=== PATIENT | female | born 1990 | race African-American/Black ===

== ENCOUNTER 2017-05-14 13:23 | Emergency (ER) | payer BC, OTHER ==
--- NOTE | 2017-05-14 13:52 | ER Document Report ---
ED GI/ - General Chief Complaint: Abdominal Pain Stated Complaint: ABDOMINAL PAIN, VAGINAL BLEEDING Time Seen by Provider: 05/14/17 13:50 Notes: Patient is a 26-year-old female, , 9 weeks by LMP, presents with a few hours of light vaginal spotting. She has had cramping for the past 5 weeks. Her first OB appointment is 4 days, so she has not had an ultrasound to confirm an intrauterine . She is no longer having any vaginal spotting. Her blood type is O+. Denies lightheadedness, abdominal pain, dysuria, hematuria, fevers, headache, nausea or vomiting. TRAVEL OUTSIDE OF THE [place] IN LAST 30 DAYS: No - Related Data Allergies/Adverse Reactions: adhesive [Adhesive] Allergy (Verified 05/14/17 14:34) No Known Drug Allergies Allergy (Verified 05/14/17 14:34) Past Medical History - General Information source: Patient - Social History Smoking Status: Never Smoker Family History: Reviewed & Not Pertinent Patient has suicidal ideation: No Patient has homicidal ideation: No Pulmonary Medical History: Reports: Hx Pneumonia Renal/ Medical History: Denies: Hx Peritoneal Dialysis - Immunizations Hx Diphtheria, Pertussis, Tetanus Vaccination: Yes - < 5 years Hx Pneumococcal Vaccination: 08/18/11 Review of Systems - Review of Systems Notes: REVIEW OF SYSTEMS: CONSTITUTIONAL: -fevers, -chills EENT: -eye pain, -difficulty swallowing, -nasal congestion CARDIOVASCULAR:-chest pain, -syncope. RESPIRATORY: -cough, -SOB GASTROINTESTINAL: -abdominal pain, - nausea, -vomiting, -diarrhea GENITOURINARY: -dysuria, -hematuria, +vaginal spotting MUSCULOSKELETAL: -back pain, -neck pain SKIN: -rash or skin lesions. HEMATOLOGIC: -easy bruising or bleeding. LYMPHATIC: -swollen, enlarged glands. NEUROLOGICAL: -altered mental status or loss of consciousness, -headache, - neurologic symptoms PSYCHIATRIC: -anxiety, -depression. ALL OTHER SYSTEMS REVIEWED AND NEGATIVE. Physical Exam - Vital signs Vitals: Temp Pulse Resp BP Pulse Ox 98.1 F 87 18 113/59 L 100 05/14/17 13:29 05/14/17 13:29 05/14/17 13:29 05/14/17 13:29 05/14/17 13:29 - Notes Notes: PHYSICAL EXAMINATION: GENERAL: Well-appearing, well-nourished and in no acute distress. HEAD: Atraumatic, normocephalic. EYES: Pupils equal round and reactive to light, extraocular movements intact, sclera anicteric, conjunctiva are normal. ENT: nares patent, oropharynx clear without exudates. Moist mucous membranes. NECK: Normal range of motion, supple without lymphadenopathy LUNGS: Breath sounds clear to auscultation bilaterally and equal. No wheezes rales or rhonchi. HEART: Regular rate and rhythm without murmurs ABDOMEN: Soft, nontender, normoactive bowel sounds. No guarding, no rebound. No masses appreciated. EXTREMITIES: Normal range of motion, no pitting or edema. No cyanosis. NEUROLOGICAL: Cranial nerves grossly intact. Normal speech, normal gait. Normal sensory and motor exams. PSYCH: Normal mood, normal affect. SKIN: Warm, Dry, normal turgor, no rashes or lesions noted. Course - Re-evaluation Re-evalutation: Patient appears well. Her ultrasound shows a single intrauterine with estimated gestational age of 8 weeks 6 days. Her cervix is closed and she is no longer bleeding. Her blood type is O+ from prior blood tests. She has an appointment with her OB in 3 days. Will discharge home with return precautions. - Vital Signs Vital signs: Temp Pulse Resp BP Pulse Ox 98.1 F 87 18 113/59 L 100 05/14/17 13:29 05/14/17 13:29 05/14/17 13:29 05/14/17 13:29 05/14/17 13:29 - Laboratory Laboratory results interpreted by me: 05/14/17 05/14/17 13:55 13:55 Serum HCG, Qual POSITIVE H Urine Blood SMALL H Ur Leukocyte Esterase TRACE H Discharge - Discharge Clinical Impression: Vaginal bleeding in Qualifiers: Trimester: first trimester Qualified Code(s): O46.91 - Antepartum hemorrhage, unspecified, first trimester Condition: Stable Disposition: HOME, SELF-CARE Additional Instructions: : You are . care is best started as early in as possible. If you're unsure about continuing this , you should discuss this with your physician or with cocktail server at [facility]. You should take only medications approved by your physician. Acetaminophen can safely be taken for minor pains. As a rule, medication for chronic conditions such as asthma or seizures can safely be continued. You should discuss with the physician every medicine you take. Any regular exercise program can be continued. Talk to your physician, however, before engaging in competitive or demanding sports. Alcohol, smoking, and "street drugs" are dangerous to your baby. Cocaine is especially dangerous. Don't use any illicit drugs! BLEEDING DURING EARLY : You have been evaluated for passing blood while . While we take this symptom very seriously, most women with your degree of bleeding will go on to have a perfectly normal baby. At this time, there is no indication that a miscarriage will occur. (A miscarriage occurs when the fetus is abnormal. There is no medicine or treatment to prevent it.) A more serious cause of bleeding is tubal (or ectopic) . An ultrasound usually can show whether the is in the uterus or in the tube. Sometimes in early , no fetus is seen. In this case, careful follow-up, including repeat blood tests and repeat ultrasound, is necessary. Do not douche or have sex for at least a week, or until OK'd by the doctor. Don't use tampons. Call the doctor or return for re-examination if there is an increase in bleeding or cramping, extreme weakness, fainting, new abdominal pain, fever, or passage of tissue. FOLLOW-UP CARE: If you have been referred to a physician for follow-up care, call the physician s office for an appointment as you were instructed or within the next two days. If you experience worsening or a significant change in your symptoms (very heavy bleeding with large clots of blood, passage of tissue, more severe abdominal / pelvic pain or cramping, feeling faint or severe weakness, fever, etc.), notify the physician immediately or return to the Emergency Department at any time for re-evaluation. OBSTETRIC-GYNECOLOGIC (OB-LICENSING OFFICER) PHYSICIANS IN [place]: [facility] [address] [place], [place] [phone] [facility] [address] [place] [address] [phone] For active duty and dependents diagnosed with a threatened or miscarriage, you should follow up in the following manner: Standard patients who have a local civilian provider should follow up with that provider. Patients of the [facility] should call your Team Nurse at 8: 00 am the following morning for further instructions. If you are neither a Standard patient nor a patient of the [facility], you should follow up at the [facility] ([facility]) . Patients already enrolled in the [facility] OB Clinic, Prime patients not assigned to the Family Practice Clinic, and Active Duty patients not assigned to Family Practice Clinic should report to the [facility] Lab at 8:00 am the next morning that the [facility] OB Clinic is open and then you will be seen in the OB Clinic at 11:00 am.
[2017-05-14 14:27] LABS: APPEARANCE,URINE CLEAR; BILIRUBIN,URINE NEGATIVE (NEGATIVE); GLUCOSE, URINE NEGATIVE (NEGATIVE); KETONES,URINE NEGATIVE (NEGATIVE); LEUKOCYTE ESTERASE,URINE TRACE (NEGATIVE); NITRITE,URINE NEGATIVE (NEGATIVE); PROTEIN,URINE NEGATIVE (NEGATIVE); URINE SPECIFIC GRAVITY 1.006; UROBILINOGEN,URINE NEGATIVE mg/dL (<2.0)
--- NOTE | 2017-05-14 14:52 | RADIOLOGY REPORT (SQ) ---
EXAM DESCRIPTION: U/S [id number] TRNABD 1GES W/ODOP COMPLETED DATE/TIME: 05/14/2017 2:37 pm REASON FOR STUDY: 9 weeks , vaginal bleeding/cramping COMPARISON: None. TECHNIQUE: Transabdominal static and realtime grayscale images acquired of the pelvis. Additional se lected spectral and color Doppler images recorded. All images stored on PACs. CG: Not available. LIMITATIONS: None. FINDINGS: FETUS: Living intrauterine . EGA: 8 weeks 6 days JOSE DE JESUS: 12/18/2017 FHR: 169 beats per minute. SUBCHORIONIC BLEED: No SIZE OF BLEED: Not applicable. UTERUS: No masses. No anomalies. 10.5 x 9.5 x 7.5 cm. CERVICAL LENGTH: 3.7 cm. Closed. RIGHT ADNEXA: Not seen. No adnexal free fluid. No adnexal masses. LEFT ADNEXA: Normal ovary with normal vascular flow. 22 x 17 x 20 mm. No adnexal free fluid. No adnexal masses. FREE FLUID: None. OTHER: No other significant finding. IMPRESSION: There is a live intrauterine gestation of 8 weeks 6 days with an estimated date of deliv mary of 12/18/2017. Trimester of : First - 0 to 13 weeks. TECHNICAL DOCUMENTATION: JOB ID: [id number] [employer]- All Rights Reserved
[2017-05-14 15:13] VITALS: BP 116/62
== END 2017-05-14 15:15 | disposition home or self-care (01) ==
LOC: ER 13:23
DX: O46.91 Antepartum hemorrhage, unspecified, first trimester (principal); Z3A.08 8 weeks gestation of pregnancy
CPT/HCPCS: 36415; 76801; 81001; 84702; 84703; 99284

== ENCOUNTER → 2017-06-04 | Outpatient (CLI) | payer SELFPAY ==
--- NOTE | 2017-06-04 16:37 | RADIOLOGY REPORT (SQ) ---
EXAM DESCRIPTION: U/S [id number] TRNABD 1GES W/ODOP COMPLETED DATE/TIME: 06/04/2017 3:07 pm REASON FOR STUDY: ENCOUNTER FOR SUPERVISION OF OTHER NORMAL , FIRST TRIMESTER (Z34.8 Z34.81 ENCOUNTER FOR SUPRVSN OF NORMAL , FIRST TRIM COMPARISON: OB ultrasound 05/14/2017 TECHNIQUE: Transabdominal static and realtime grayscale images acquired of the pelvis. Additional se lected spectral and color Doppler images recorded. All images stored on PACs. bHCG: Not available. Last menses 03/09/2017 LIMITATIONS: None. FINDINGS: FETUS: Living intrauterine . EGA: 12 weeks 3 days JOSE DE JESUS: 12/14/2017 FHR: 175 beats per minute. SUBCHORIONIC BLEED: Yes, 1 cm in size along the lower uterine segment. UTERUS: No masses. No anomalies. Uterus is 13.1 x 8.5 x 7.8 cm in size. CERVICAL LENGTH: 3.6 cm in length Closed. RIGHT ADNEXA: Not visualized due to adnexal bowel gas LEFT ADNEXA: Left ovary 2.2 x 1.7 x 2.2 cm in size, with an 8 mm cyst, likely the corpus luteum. No adnexal free fluid. No adnexal masses. FREE FLUID: None. OTHER: No other significant finding. IMPRESSION: LIVING INTRAUTERINE . EGA 12 weeks 3 days Trimester of : First - 0 to 13 weeks. TECHNICAL DOCUMENTATION: JOB ID: [id number] [employer]- All Rights Reserved
== END ==
LOC: RAD 14:07
PROVIDERS: ATTEND Nurse Practitioner Women's Health
DX: Z34.81 Encounter for supervision of other normal pregnancy, first trimester (principal)
CPT/HCPCS: 76801

== ENCOUNTER → 2017-07-17 | Outpatient (CLI) | payer SELFPAY ==
--- NOTE | 2017-07-17 16:16 | RADIOLOGY REPORT (SQ) ---
EXAM DESCRIPTION: U/S OB 14+ TRNABD 1GES W/O DOP COMPLETED DATE/TIME: 07/17/2017 3:58 pm REASON FOR STUDY: ENCOUNTER FOR SUPERVISION OF OTHER NORMAL , SECOND TRIMESTER Z34.82 ENCO UNTER FOR SUPRVSN OF NORMAL , SECOND TRI COMPARISON: None. TECHNIQUE: Static and Dynamic grayscale imaging performed of gravid uterus using transabdominal appr oach. Additional selected color Doppler and spectral images recorded. All stored on PACS. LIMITATIONS: None. FINDINGS: EGA: 18 weeks 3 days weeks JOSE DE JESUS: 12/15/2017 EFW: 231+/- 34 grams PERCENTILE: Not applicable. Fetus less than or equal to 20 weeks gestation. LOYDA: 4.8 cm PLACENTA: Anterior and fundal. GRADE: I PRESENTATION: Cephalic. ANATOMY: HEART RATE: 148 beats per minute. FOUR CHAMBER HEART: Visualized. THREE VESSEL CORD: Yes. CORD INSERTION: Visualized. KIDNEYS AND BLADDER: Visualized. Appear normal. STOMACH: Visualized. Appears normal. SPINE: Normal as visualized. BRAIN AND LATERAL VENTRICLES: Visualized. Appear normal. OTHER: No other significant finding. MATERNAL ADNEXA: Maternal ovaries not visualized. CERVICAL LENGTH: 4.7 cm Closed. OTHER: No other significant finding. IMPRESSION: Live intrauterine gestation of 18 weeks 3 days with estimated date of delivery of 018. No visualized anomalies. Trimester of : Second trimester - 13 weeks 1 day to 27 weeks 6 days. TECHNICAL DOCUMENTATION: JOB ID: [id number] [employer]- All Rights Reserved
== END ==
LOC: RAD 14:05
PROVIDERS: ATTEND Nurse Practitioner Women's Health
DX: Z34.82 Encounter for supervision of other normal pregnancy, second trimester (principal)
CPT/HCPCS: 76805

== ENCOUNTER 2017-08-20 08:05 | Emergency (ER) | payer BC ==
--- NOTE | 2017-08-20 08:53 | ER Document Report ---
HPI - HPI Pain Level: 4 Notes: Patient is a 23wk 27yo female who presents to the ED c/o dry nonproductive cough, nasal isiah/discharge, occ sore throat, muscle spasms x1 week. Pt has been using tylenol with minimal relief. 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 She is still eating and drinking without any difficulties. She is still urinating normally and having normal bowel movements. She has not noticed any pelvic cramping, vaginal discharge/bleeding. Denies any headache, fever, neck pain, chest pain, palpitations, syncope, shortness of breath, wheeze, dyspnea, abdominal pain, nausea/vomiting/diarrhea, urinary retention, dysuria, hematuria, or rash. - ROS Notes: REVIEW OF SYSTEMS: CONSTITUTIONAL : Denies fever, chills, or sweats. Denies recent illness. EENT: see hpi CARDIOVASCULAR: Denies chest pain. Denies palpitations or racing or irregular heart beat. Denies ankle edema. RESPIRATORY: see hpi GASTROINTESTINAL: Denies abdominal pain or distention. Denies nausea, vomiting , or diarrhea. Denies blood in vomitus, stools, or per rectum. Denies black, tarry stools. Denies constipation. GENITOURINARY: Denies difficulty urinating, painful urination, burning, frequency, blood in urine, or discharge. MUSCULOSKELETAL: Denies back or neck pain or stiffness. Denies joint pain or swelling. SKIN: Denies rash, lesions or sores. NEUROLOGICAL: Denies confusion or altered mental status. Denies passing out or loss of consciousness. Denies dizziness or lightheadedness. Denies headache. Denies weakness or paralysis or loss of use of either side. Denies problems with gait or speech. Denies sensory loss, numbness, or tingling. ALL OTHER SYSTEMS REVIEWED AND NEGATIVE. Dictation was performed using [employer] voice recognition software - CARDIOVASCULAR Cardiovascular: DENIES: Chest pain - REPRODUCTIVE LMP: LMP 03/09/17 23wk pg Reproductive: DENIES: : - DERM Skin Color: Normal Past Medical History - Social History Smoking Status: Never Smoker Frequency of alcohol use: None Drug Abuse: None Family History: Reviewed & Not Pertinent Patient has suicidal ideation: No Pulmonary Medical History: Reports: Hx Pneumonia Renal/ Medical History: Denies: Hx Peritoneal Dialysis Surgical Hx: Negative - Immunizations Hx Diphtheria, Pertussis, Tetanus Vaccination: Yes - < 5 years Hx Pneumococcal Vaccination: 08/18/11 Vertical Provider Document - CONSTITUTIONAL Agree With Documented VS: Yes Notes: PHYSICAL EXAMINATION: GENERAL: Well-appearing, well-nourished and in no acute distress. A&Ox4 HEAD: Atraumatic, normocephalic. EYES: Pupils equal round and reactive to light, extraocular movements intact, sclera anicteric, conjunctiva are normal. ENT: EAC clear b/l. TM's intact b/l without erythema, fluid, or perforation. Nares patent and without discharge. oropharynx clear without exudates. No tonsilar hypertrophy or erythema. Moist mucous membranes. No sinus tenderness. Uvula midline. No palatine shift. No tongue protrusion. NECK: Normal range of motion, supple without lymphadenopathy. No rigidity/ meningismus. LUNGS: Breath sounds clear to auscultation bilaterally and equal. No wheezes rales or rhonchi. HEART: Regular rate and rhythm without murmurs, rubs, gallops. ABDOMEN: Soft, nontender, nondistended abdomen. No guarding, no rebound. No masses appreciated. Normal bowel sounds present. No CVA tenderness bilaterally. Extremities: No cyanosis, clubbing, or edema b/l. Peripheral pulses 2+. Capillary refill less than 3 seconds. NEUROLOGICAL: Cranial nerves grossly intact. Normal speech, normal gait. Normal sensory, motor exams PSYCH: Normal mood, normal affect. SKIN: Warm, Dry, normal turgor, no rashes or lesions noted. - INFECTION CONTROL TRAVEL OUTSIDE OF THE [place] IN LAST 30 DAYS: No - RESPIRATORY O2 Sat by Pulse Oximetry: 100 Course - Re-evaluation Re-evalutation: 08/20/17 08:50 Patient is an afebrile, well-hydrated, 27-year-old 23wk female who presents to the ED with acute bronchitis/URI, suspect viral at this time. Vitals are stable. PE is otherwise unremarkable. Centor criteria not met for strep. No chest x-ray warranted at this time. I will send the patient home with a pack a prescription for amoxicillin that she may begin taking in 2-3 days with ongoing/worsening symptoms. Low suspicion for any meningitis, sepsis , peritonsillar/pharyngeal abscess, respiratory compromise, Clyde's, temporal arteritis, ACS, PE, penumothorax, dissection, pericarditis, or other emergent systemic condition at this time. Patient is aware this condition can change from initial presentation and he needs to monitor symptoms closely. Conservative measures otherwise for symptoms. Recheck with your PCM this week. Return to the ED with any worsening/concerning symptoms otherwise as reviewed in discharge. Patient is in agreement. - Vital Signs Vital signs: Temp Pulse Resp BP Pulse Ox 98.4 F 90 18 110/60 100 08/20/17 08:15 08/20/17 08:15 08/20/17 08:40 08/20/17 08:15 08/20/17 08:15 Discharge - Discharge Clinical Impression: Acute URI Acute bronchitis Qualifiers: Bronchitis organism: unspecified organism Qualified Code(s): J20.9 - Acute bronchitis, unspecified Condition: Stable Disposition: HOME, SELF-CARE Instructions: Upper Respiratory Illness ([facility]), Bronchitis ([facility]), Family Physicians / Practices Additional Instructions: Maintain adequate fluid intake Take meds as directed tylenol as needed over the counter cold medication as needed for symptoms Humidified air may help F/u: with your PCM in 3-5 days for a recheck Return to the ED with any fever, worsening pain, chest pain, palpitations, syncope, worsening CARDENAS, neck pain/stiffness, shortness of breath, wheezing, drooling, trouble swallowing/breathing, abdominal pain, n/v/d, rash, or worsening/concerning symptoms otherwise. Prescriptions: Amoxicillin Trihydrate [Amoxil 875 mg Tablet] 1 tab PO BID #20 tablet Referrals: [facility] [Provider Group] - Follow up as needed [facility] [NO LOCAL MD] - Follow up as needed [facility] [Provider Group] - Follow up as needed
[2017-08-20 09:16] VITALS: BP 100/62
== END 2017-08-20 09:16 | disposition home or self-care (01) ==
LOC: ER 08:05
DX: O99.512 Diseases of the respiratory system complicating pregnancy, second trimester (principal); J02.9 Acute pharyngitis, unspecified; J20.9 Acute bronchitis, unspecified; O26.892 Other specified pregnancy related conditions, second trimester; R05 Cough; R09.81 Nasal congestion; O99.89 Other specified diseases and conditions complicating pregnancy, childbirth and the puerperium; M62.838 Other muscle spasm; Z3A.23 23 weeks gestation of pregnancy; Z87.01 Personal history of pneumonia (recurrent)
CPT/HCPCS: 99283

== ENCOUNTER 2017-09-30 11:28 | Outpatient (CLI) | payer BC, MEDICAID ==
[2017-09-30 13:22] LABS: APPEARANCE,URINE CLOUDY; BILIRUBIN,URINE NEGATIVE (NEGATIVE); GLUCOSE, URINE NEGATIVE (NEGATIVE); KETONES,URINE NEGATIVE (NEGATIVE); LEUKOCYTE ESTERASE,URINE SMALL (NEGATIVE); NITRITE,URINE NEGATIVE (NEGATIVE); PROTEIN,URINE 30 mg/dL (NEGATIVE); URINE SPECIFIC GRAVITY 1.025; UROBILINOGEN,URINE NEGATIVE mg/dL (<2.0)
[2017-09-30 13:54] LABS: URINE BARBITURATES SCREEN NEGATIVE; URINE METHADONE SCREEN NEGATIVE; URINE OPIATES LOW NEGATIVE; URINE PHENCYCLIDINE SCREEN NEGATIVE
--- NOTE | 2017-09-30 14:01 | RADIOLOGY REPORT (SQ) ---
EXAM DESCRIPTION: U/S OB LIMITED COMPLETED DATE/TIME: 09/30/2017 1:46 pm REASON FOR STUDY: cervical length for abd pain COMPARISON: None. TECHNIQUE: Limited transvaginal grayscale ultrasound for evaluation of specific requested obstetrica l parameters. LIMITATIONS: None. FINDINGS: CERVICAL LENGTH: 5.0 cm Closed. LOYDA: 4.8 cm. FHR: 152 beats per minute. PRESENTATION: Cephalic. OTHER: Anterior placenta. IMPRESSION: LIMITED OBSTETRICAL ULTRASOUND WITH MEASURED PARAMETERS DELINEATED ABOVE. Trimester of : Third trimester - 28 weeks to delivery. TECHNICAL DOCUMENTATION: JOB ID: [id number] [employer]- All Rights Reserved
== END 2017-09-30 14:35 | disposition home or self-care (01) ==
LOC: LC 11:28
PROVIDERS: ATTEND Student in an Organized Health Care Education/Training Program
PROC: 4A1HXCZ Monitoring of Products of Conception, Cardiac Rate, External Approach (ICD-10-PCS; principal; 2017-09-30)
DX: O26.893 Other specified pregnancy related conditions, third trimester (principal); R10.2 Pelvic and perineal pain; Z3A.29 29 weeks gestation of pregnancy
CPT/HCPCS: 76815; 80307; 81001

== ENCOUNTER 2017-11-28 21:37 | Outpatient (CLI) | payer MEDICAID ==
[2017-11-28 22:13] LABS: APPEARANCE,URINE CLEAR; BILIRUBIN,URINE NEGATIVE (NEGATIVE); COLOR,URINE COLORLESS; GLUCOSE, URINE NEGATIVE (NEGATIVE); KETONES,URINE NEGATIVE (NEGATIVE); LEUKOCYTE ESTERASE,URINE NEGATIVE (NEGATIVE); NITRITE,URINE NEGATIVE (NEGATIVE); PROTEIN,URINE NEGATIVE (NEGATIVE); URINE SPECIFIC GRAVITY 1.001; UROBILINOGEN,URINE NEGATIVE mg/dL (<2.0)
[2017-11-28 22:29] LABS: URINE AMPHETAMINES SCREEN NEGATIVE; URINE BARBITURATES SCREEN NEGATIVE; URINE BENZODIAZEPINES SCREEN NEGATIVE; URINE COCAINE SCREEN NEGATIVE; URINE MARIJUANA (THC) SCREEN NEGATIVE; URINE METHADONE SCREEN NEGATIVE; URINE PHENCYCLIDINE SCREEN NEGATIVE
--- NOTE | 2017-11-28 22:56 | Non Stress Test Report ---
Non Stress Test Datetime Report Generated by CPN: 11/28/2017 22:56 DEMOGRAPHIC EGA NST: 37.5 EGA NST: 29.2 INDICATION Indication for Study: Ordered by Provider Indication for Study: Other Indication for Study (NST) Other: No NST required. Patient only 29 weeks. VITAL SIGNS Temperature - NST: 98.9 Temperature - NST: 98.8 Pulse - NST: 88 RESP - NST: 14 NBPSYS NST: 92 NBPSYS NST: 122 NBPDIA NST: 58 NBPDIA NST: 54 MONITORING Monitor Explained: Monitor Explained; Test Explained; Patient Verbalized Understanding Monitor Explained: Monitor Explained; Test Explained; Patient Verbalized Understanding Time on Monitor: 11/28/2017 21:53 Time on Monitor: 09/30/2017 11:49 Time off Monitor: 11/28/2017 22:19 Time off Monitor: 09/30/2017 14:19 NST Duration: 26 NST Duration: 150 NST INTERVENTIONS NST Interventions: PO Hydration NST Interventions: PO Hydration Physician Notified NST: Dr Obrien BABY A: [id number] BABY A Movement : Present Movement : Present Contraction Frequency : irreg Contraction Frequency : 0 FHR Baseline : 145 FHR Baseline : 145 Accelerations : 15X15 Accelerations : 15X15 Decelerations : None Decelerations : None Variability : Moderate 6-25bpm Variability : Moderate 6-25bpm NST Review: Meets Criteria for Reactive NST NST Review: Meets Criteria for Reactive NST NST Review and Verified By : Harleen Narvaez RN NST Review and Verified By : NST not required. Patient 29.2 weeks gestation NST Results: Reactive NST REPORT Report Trigger: Send Report
== END 2017-11-28 23:00 | disposition home or self-care (01) ==
LOC: LC 21:37
PROVIDERS: ATTEND Obstetrics & Gynecology Gynecology
PROC: 4A1HXCZ Monitoring of Products of Conception, Cardiac Rate, External Approach (ICD-10-PCS; principal; 2017-11-28)
DX: O47.1 False labor at or after 37 completed weeks of gestation (principal); Z3A.37 37 weeks gestation of pregnancy
CPT/HCPCS: 59025; 80307; 81005

== ENCOUNTER 2017-11-30 03:36 | Outpatient (CLI) | payer MEDICAID ==
[2017-11-30 04:18] LABS: APPEARANCE,URINE CLEAR; BILIRUBIN,URINE NEGATIVE (NEGATIVE); COLOR,URINE STRAW; GLUCOSE, URINE NEGATIVE (NEGATIVE); KETONES,URINE NEGATIVE (NEGATIVE); LEUKOCYTE ESTERASE,URINE NEGATIVE (NEGATIVE); NITRITE,URINE NEGATIVE (NEGATIVE); PROTEIN,URINE NEGATIVE (NEGATIVE); URINE SPECIFIC GRAVITY 1.004; UROBILINOGEN,URINE NEGATIVE mg/dL (<2.0)
[2017-11-30 04:37] LABS: URINE AMPHETAMINES SCREEN NEGATIVE; URINE BARBITURATES SCREEN NEGATIVE; URINE BENZODIAZEPINES SCREEN NEGATIVE; URINE COCAINE SCREEN NEGATIVE; URINE MARIJUANA (THC) SCREEN NEGATIVE; URINE METHADONE SCREEN NEGATIVE; URINE PHENCYCLIDINE SCREEN NEGATIVE
--- NOTE | 2017-11-30 09:22 | Non Stress Test Report ---
Non Stress Test Datetime Report Generated by CPN: 11/30/2017 09:22 DEMOGRAPHIC EGA NST: 38.1 INDICATION Indication for Study: Ordered by Provider URINE RESULTS Urine Protein, NST: Negative Urine Ketones - NST: Negative Urine Glucose - NST: Negative Urine Blood - NST: Negative MONITORING Monitor Explained: Monitor Explained; Test Explained; Patient Verbalized Understanding Time on Monitor: 11/30/2017 03:54 Time off Monitor: 11/30/2017 05:53 NST Duration: 119 NST INTERVENTIONS NST Interventions: PO Hydration; Reposition Patient Physician Notified NST: Dr. Camacho BABY A: [id number] BABY A Movement : Present Contraction Frequency : Irregular FHR Baseline : 140 Accelerations : 15X15 Decelerations : None Variability : Moderate 6-25bpm NST Review: Meets Criteria for Reactive NST NST Review and Verified By : Harleen Narvaez RN NST Results: Reactive NST REPORT Report Trigger: Send Report
== END 2017-11-30 05:51 | disposition home or self-care (01) ==
LOC: LC 03:36
PROVIDERS: ATTEND Obstetrics & Gynecology
PROC: 4A1HXCZ Monitoring of Products of Conception, Cardiac Rate, External Approach (ICD-10-PCS; principal; 2017-11-30)
DX: O47.1 False labor at or after 37 completed weeks of gestation (principal); Z3A.38 38 weeks gestation of pregnancy
CPT/HCPCS: 59025; 80307; 81005

== ENCOUNTER 2017-11-30 09:24 | Inpatient (IN) | payer MEDICAID ==
[2017-11-30] MEDS ORDERED: MISOPROSTOL 0.2 MG TABLET ONE (09:30)
[2017-11-30] MEDS ORDERED: LIDOCAINE 1% INJ-PF (10 MG/ML) 30 ML SDV ONE (09:30)
[2017-11-30] MEDS ORDERED: OXYTOCIN/NORMAL SALINE 20 UNIT/1,000 ML RTUINJ ONE (09:30)
[2017-11-30] MEDS ORDERED: OXYTOCIN 10 UNIT/ML VIAL ONE (09:31)
[2017-11-30] MEDS ORDERED: ACETAMINOPHEN WITH CODEINE #3 TABLET PO PRN ×2 (09:52)
[2017-11-30] MEDS ORDERED: HYDROCODONE/ACETAMINOPHEN 5-325 MG TABLET PO PRN (09:52)
[2017-11-30] MEDS ORDERED: OXYTOCIN/NORMAL SALINE 1,000 ML IV PRN (09:52)
[2017-11-30] MEDS ORDERED: PROMETHAZINE HCL 25 MG SUPP.RECT PR PRN (09:52)
[2017-11-30] MEDS ORDERED: DIBUCAINE 1% OINTMENT 28 GM TP PRN (09:52)
[2017-11-30] MEDS ORDERED: GLYCERIN/WITCH HAZEL LEAF 1 EACH MED..PAD TP PRN (09:52)
[2017-11-30] MEDS ORDERED: BENZOCAINE/MENTHOL AEROSOL SPRAY 56 ML TOP PRN (09:52)
[2017-11-30] MEDS ORDERED: NA PHOS,M-B/NA PHOS,DI-BA (ADULT) 133 ML ENEMA PR PRN (09:52)
[2017-11-30] MEDS ORDERED: DIPH/PERTUSS(ACELL)/TETANUS VAC/PF 0.5 ML SYR (>=10YO) IM PRN (09:52)
[2017-11-30] MEDS ORDERED: DIPHENHYDRAMINE HCL 25 MG CAPSULE PO PRN (09:52)
[2017-11-30] MEDS ORDERED: MAGNESIUM HYDROXIDE SUSP 30 ML UDCUP PO PRN (09:52)
[2017-11-30] MEDS ORDERED: PROMETHAZINE HCL 25 MG TABLET PO PRN (09:52)
[2017-11-30] MEDS ORDERED: ZOLPIDEM TARTRATE 5 MG TABLET PO PRN (09:52)
[2017-11-30] MEDS ORDERED: PROMETHAZINE HCL INJ 25 MG/1 ML VIAL IV PRN (09:52)
[2017-11-30] MEDS ORDERED: MEASLES,MUMPS&RUBELLA VACC/PF 0.5 ML VIAL SUBCUT PRN (09:52)
[2017-11-30] MEDS ORDERED: ACETAMINOPHEN 650 MG SUPP.RECT PR PRN (09:52)
[2017-11-30] MEDS ORDERED: PSEUDOEPHEDRINE HCL 30 MG TABLET PO PRN (09:52)
[2017-11-30] MEDS ORDERED: [UNRECOGNIZED DRUG - REMARK] PO SCH (10:00)
--- NOTE | 2017-11-30 10:01 | L&D Progress Notes ---
PROGRESS NOTES Datetime Report Generated by CPN: 11/30/2017 10:01 PROGRESS NOTE Impression: Normal Progression of Labor Procedures: Artificial ROM Plan: Continue Present Management Informed Consent Obtained: Vaginal Delivery; Risks, Benefits and Alternatives Discussed Comment: Delivered a viable Male Apgars 8/9. Weight pending. Mother and baby bonding well. VAGINAL EXAM Dilatation: 10 Effacement: 100 Station: 0 Contractions: every 2 minutes MEMBRANES Membranes: Ruptured Amniotic Fluid Color: Clear FETUS A Monitoring: External US Decelerations: Variable : 38.0 Estimated Weight (gm): 3200 Presentation: Vertex SIGNATURE SIGNATURE: ,[id number] SIGNATURE: [id number] SIGNATURE: [id number] Signature: with User ID: [email or web address]
[2017-11-30 10:30] LABS: ABSOLUTE BASOPHILS # (AUTO) 0.1 10^3/uL (0.0-0.2); ABSOLUTE EOSINOPHILS # (AUTO) 0.1 10^3/uL (0.0-0.6); ABSOLUTE LYMPHOCYTES (AUTO) 2.1 10^3/uL (0.5-4.7); ABSOLUTE MONOCYTES (AUTO) 1.7 10^3/uL (0.1-1.4); ABSOLUTE NEUT (AUTO) 9.5 10^3/uL (1.7-8.2); BASOPHILS % (AUTO) 0.5 % (0-2); EOSINOPHILS % (AUTO) 0.5 % (0-6); HEMATOCRIT 32.8 % (36.0-47.0); HEMOGLOBIN 10.9 g/dL (12.0-15.5); LYMPHOCYTES % (AUTO) 15.4 % (13-45); MEAN CORPUSCULAR HEMOGLOBIN 28.8 pg (27.0-33.4); MEAN CORPUSCULAR HGB CONC 33.3 g/dL (32.0-36.0); MEAN CORPUSCULAR VOLUME 86 fl (80-97); MONOCYTES % (AUTO) 12.8 % (3-13); PLATELET COUNT 211 10^3/uL (150-450); RED BLOOD COUNT 3.79 10^6/uL (3.72-5.28); RED CELL DISTRIBUTION WIDTH 14.1 % (11.5-14.0); SEGMENTED NEUTROPHILS % (AUTO) 70.8 % (42-78); TOTAL CELLS COUNTED % (AUTO) 100 %; WHITE BLOOD COUNT 13.5 10^3/uL (4.0-10.5)
[2017-11-30] MEDS ORDERED: IBUPROFEN 800 MG TABLET ONE (10:55)
--- NOTE | 2017-11-30 12:03 | Delivery Summary ---
Del Sum A-C Datetime Report Generated by CPN: 11/30/2017 12:02 DELIVERY PERSONNEL DELIVERY PERSONNEL: [id number] Delivery Doctor:: Dr. Bonilla Labor and Delivery Nurse:: Cathie Espinosa RNgrinder set up operator thread Nurse:: Negin Cisneros RN Nursery Nurse:: Negin Cisneros RN MATERNAL INFORMATION Delivery Anesthesia: None Medications After Delivery: Pitocin Bolus-Please Comment; Pitocin Drip 20 Units/1000ml NSS Meds After Delivery Comment: 20 Units Pitocin/1000ml NS Estimated Blood Loss (ml): 200 Maternal Complications: Precipitous Labor (<3hrs) LABOR SUMMARY EDC: 12/13/2017 00:00 No. Babies in Womb: 1 Attempted: No Labor Anesthesia: None LABOR INFORMATION Reason for Induction: Not Applicable Onset of Labor: 11/30/2017 07:00 Complete Dilatation: 11/30/2017 09:39 Oxytocin: N/A Group B Beta Strep: Positive Antibiotics # of Doses: 0 Antibiotics Time of Last Dose: N/A Name of Antibiotic Given: N/A Steroids Given: None Reason Steroids Not Administered: Not Applicable MEMBRANES Membranes Rupture Method: Artificial Rupture of Membranes: 11/30/2017 09:39 Length of Rupture (hr): 0.05 Amniotic Fluid Color: Clear Amniotic Fluid Amount: Moderate Amniotic Fluid Odor: Normal STAGES OF LABOR Stage 1 hr: 2 Stage 1 min: 39 Stage 2 hr: 0 Stage 2 min: 3 Stage 3 hr: 0 Stage 3 min: 2 Total Time in Labor hr: 2 Total Time in Labor min: 44 VAGINAL DELIVERY Episiotomy: None Laceration #1: None Laceration Repair: Not Applicable Sponge Count Correct: N/A Sharps Count Correct: N/A BABY A INFORMATION Delivery Date/Time: 11/30/2017 09:42 Method of Delivery: Vaginal Born in Route : No : N/A Forceps: N/A Vacuum Extraction: N/A Shoulder Dystocia : No PRESENTATION/POSITION BABY A Presentation: Cephalic Cephalic Presentation: Vertex Vertex Position: Left Occipital Anterior Breech Presentation: N/A PLACENTA INFORMATION BABY A Placenta Delivery Time : 11/30/2017 09:44 Placenta Method of Delivery: Spontaneous Placenta Status: Delivered SCORES BABY A Heart Rate 1 min: >100 bpm Resp Effort 1 min: Good Cry Reflex Irritability 1 min: Cough or Sneeze or Pulls Away Muscle Tone 1 min: Active Motion Color 1 min: Blue/Pale Resuscitation Effort 1 min: Tactile Stimulation SCORE 1 MIN: 8 Heart Rate 5 min: >100 bpm Resp Effort 5 min: Good Cry Reflex Irritability 5 min: Cough or Sneeze or Pulls Away Muscle Tone 5 min: Active Motion Color 5 min: Body [place], Extremities Blue Resuscitation Effort 5 min: Tactile Stimulation SCORE 5 MIN: 9 INFANT INFORMATION BABY A Gestational Age at Delivery: 38.1 Gestational Status: Early Term- 37- 38.6 Weeks Infant Outcome : Liveborn Infant Condition : Stable Infant Sex: Male IDENTIFICATION BABY A Verification Date/Time: 11/30/2017 10:07 ID Band Number: [id number] Mother's Name Verified: Yes RN Verifying : Miroslava Del Angel RN and H. Amelia, RN WEIGHT/LENGTH BABY A Birthweight (gm): 2915 Infant Weight (lb): 6 Infant Weight (oz): 7 Infant Length (in): 19.75 Infant Length (cm): 50.17 CORD INFORMATION BABY A No. Cord Vessels: 3 Nuchal Cord : Around Neck x1, Loose Cord Blood Taken: Yes-For Eval (Mom's Blood Type - or O+) Infant Suction: None ASSESSMENT BABY A Infant Complications: None Physical Findings at Delivery: Within Normal Limits Infant Respirations: Appears Normal Skin to Skin: Yes [place] Up/ALS Called : No Care By: Tejas Manriqueedith RN Transferred To: Remains with Mother BABY B INFORMATION : N/A SIGNATURES Signature: with User ID: [email or web address]
--- NOTE | 2017-11-30 12:30 | Admission Physical ---
Datetime Report Generated by CPN: 11/30/2017 12:30 CURRENT ADMISSION Chief Complaint: Uterine Contractions Chief Complaint Other: Uterine contractions at 38.1 Indication for Induction: Not Applicable Indication for Induction: Term, Intrauterine ; Active Labor; Intact Membranes Admit Impression- Other: Active Admit Plan: Admit to Unit; Initiate Labor Protocol ALLERGIES Medication Allergies: No Medication Allergies: adhesive/Hives (11/30/2017) Medication Allergies: adhesive (11/30/2017) Medication Allergies: No Known Drug Allergies (09/30/2017); adhesive (09/30/2017) Medication Allergies: No Known Drug Allergies (08/20/2017); adhesive (09/30/2017) Medication Allergies: No Known Drug Allergies (08/20/2017); adhesive (08/20/2017) Medication Allergies: No Known Drug Allergies (05/14/2017); adhesive (05/14/2017) Latex: No Latex Allergies OBSTETRICAL HISTORY EDC: 12/13/2017 00:00 : 4 Para: 2 Term: 2 : 0 SAB: 1 IAB: 0 Ectopic: 0 Livin Cesareans: 0 VBACs: 0 Multiple Births: 0 Gestational Diabetes: No Rh Sensitization: No Incompetent Cervix: No JODEE: No Infertility: No ART Treatment: No Uterine Anomaly: No IUGR: No Hx Previous C/S: No Macrosomia: No Hx Loss/Stillborn: No PIH: No Hx : No Placenta Previa/Abruption: No Depression/PP Depression: No PTL/PROM: No Post Hemorrhage: No Current Procedures: Ultrasound Obstetrical History Comments: G1- 2011 miscarriage G2- 2011 daughter @ 37 weeks G3- 2013 daughter @ 38 weeks G4- 2016 son (current ) SEE RECORDS Alcohol: No Marijuana : No Cocaine: No Other Illicit Drugs: No Cigarettes: Former Smoker. 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 Heart Disease: No Hosp/Surgery: No Autoimmune Disorder: No Anesthetic Complications: No Kidney Disease: Yes Abnormal Pap Smear: Yes Neuro/Epilepsy: No Psychiatric Disorders: No Other Medical Diseases: No Hepatitis/Liver Disease: No Significant Family History: No Varicosities/Phlebitis: No Trauma/Violence : No Thyroid Dysfunction: No INFECTIOUS HISTORY Gonorrhea: No Genital Herpes: No Chlamydia: No Tuberculosis: No Syphilis: No Hepatitis: No HIV/AIDS Exposure: No Rash or Viral Illness: No HPV: Yes Infectious History Comments: + HPV 2008, colpo 2009 PHYSICAL EXAM General: Normal HEENT: Normal Neurologic: Normal Thyroid: Deferred Heart: Normal Lungs: Normal Breast: Deferred Back: Normal Abdomen: Normal Genitourinary Exam: Normal Extremities: Normal DTRs: Deferred Pelvic Type: Adequate VAGINAL EXAM Dilatation: 10 Effacement: 100 Station: 0 Contraction Comments: every 2 minutes MEMBRANES Membranes: Ruptured Amniotic Fluid Color: Clear FETUS A EGA: 38.1 Monitoring: External US FHR- Baseline: 140 Variability: Moderate 6-25bpm Accelerations: 15X15 Decelerations: Variable FHR Category: Category I FHR Comments: reassuring tracing Estimated Weight (gm): 3200 Presentation: Vertex PLANS FOR LABOR AND DELIVERY Labor and Delivery: None Pain Management: Epidural Feeding Preference: Breast Benefit of Breast Feed Discussed: Yes Circumcision: Yes INFORMED CONSENT Informed Consent Obtained: Vaginal Delivery; Risks, Benefits and Alternatives Discussed Signature: with User ID: [email or web address]
[2017-11-30] MEDS: DOCUSATE SODIUM 100 MG CAPSULE PO SCH ×2 (13:28→17:07)
[2017-11-30] MEDS: FERROUS SULFATE 325 MG TABLET PO SCH ×2 (13:28→17:07)
[2017-11-30] MEDS: SENNOSIDES/DOCUSATE 8.6-50 MG 1 EACH TABLET PO SCH (13:28)
[2017-11-30] MEDS: FAMOTIDINE 20 MG TABLET PO SCH ×2 (13:28→21:59)
[2017-11-30] MEDS: PRENATAL VITAMIN W DHA CAPSULE PO SCH (13:28)
[2017-11-30] MEDS: IBUPROFEN 800 MG TABLET PO SCH ×2 (13:30→21:59)
[2017-12-01] MEDS: IBUPROFEN 800 MG TABLET PO SCH ×3 (06:12→22:25)
[2017-12-01 07:48] LABS: HEMATOCRIT 31.5 % (36.0-47.0); HEMOGLOBIN 10.4 g/dL (12.0-15.5); MEAN CORPUSCULAR HEMOGLOBIN 28.7 pg (27.0-33.4); MEAN CORPUSCULAR HGB CONC 32.9 g/dL (32.0-36.0); MEAN CORPUSCULAR VOLUME 87 fl (80-97); PLATELET COUNT 210 10^3/uL (150-450); RED BLOOD COUNT 3.61 10^6/uL (3.72-5.28); RED CELL DISTRIBUTION WIDTH 14.3 % (11.5-14.0); WHITE BLOOD COUNT 11.7 10^3/uL (4.0-10.5)
--- NOTE | 2017-12-01 08:45 | PDOC PROGRESS REPORT ---
Subjective-OB Subjective: Post Delivery Day: 1 27 year old. Denies any needs at this time, states lochia is stable, pain well controlled, voiding withoug difficulty. Physical Exam (OB) Vital Signs: Temp Pulse Resp BP Pulse Ox 97.8 F 78 18 107/61 100 11/30/17 19:51 11/30/17 19:51 11/30/17 19:51 11/30/17 19:51 11/30/17 19:51 Intake & Output 11/30/17 12/01/17 12/02/17 06:59 06:59 06:59 Weight 77 kg - Lochia Lochia Amount: Small 10-25 ml Lochia Color: Rubra/Red - Abdomen Description: Soft, Round Hernia Present: No Fundal Description: Firm, Midline Fundal Height: u/u - u/2 Objective-Diagnostic Laboratory: 12/01/17 07:22 11/30/17 11/30/17 12/01/17 10:14 10:14 07:22 WBC 13.5 H 11.7 H RBC 3.79 3.61 L Hgb 10.9 L 10.4 L Hct 32.8 L 31.5 L MCV 86 87 MCH 28.8 28.7 MCHC 33.3 32.9 RDW 14.1 H 14.3 H Plt Count 211 210 Seg Neutrophils % 70.8 Lymphocytes % 15.4 Monocytes % 12.8 Eosinophils % 0.5 Basophils % 0.5 Absolute Neutrophils 9.5 H Absolute Lymphocytes 2.1 Absolute Monocytes 1.7 H Absolute Eosinophils 0.1 Absolute Basophils 0.1 Blood Type O POSITIVE Antibody Screen NEGATIVE Assessment and Plan(PN) - Assessment and Plan (1) Vaginal delivery Is this a current diagnosis for this admission?: Yes Plan: routine pp care - Time Spent with Patient Time with patient: Less than 15 minutes Critical Time spent with patient: Less than 15 minutes Medications reviewed and adjusted accordingly: Yes - Disposition Anticipated Discharge: Home Within: within 24 hours
[2017-12-01] MEDS: DOCUSATE SODIUM 100 MG CAPSULE PO SCH ×2 (10:21→17:50)
[2017-12-01] MEDS: PRENATAL VITAMIN W DHA CAPSULE PO SCH (10:21)
[2017-12-01] MEDS: FAMOTIDINE 20 MG TABLET PO SCH ×2 (10:27→22:24)
[2017-12-01] MEDS: SENNOSIDES/DOCUSATE 8.6-50 MG 1 EACH TABLET PO SCH (10:27)
[2017-12-01] MEDS: FERROUS SULFATE 325 MG TABLET PO SCH ×2 (10:27→17:50)
[2017-12-02] MEDS: IBUPROFEN 800 MG TABLET PO SCH (06:41)
[2017-12-02 08:58] VITALS: BP 104/74
[2017-12-02] MEDS: PRENATAL VITAMIN W DHA CAPSULE PO SCH (10:32)
[2017-12-02] MEDS: FERROUS SULFATE 325 MG TABLET PO SCH (10:32)
[2017-12-02] MEDS: SENNOSIDES/DOCUSATE 8.6-50 MG 1 EACH TABLET PO SCH (10:32)
[2017-12-02] MEDS: FAMOTIDINE 20 MG TABLET PO SCH (10:32)
[2017-12-02] MEDS: DOCUSATE SODIUM 100 MG CAPSULE PO SCH (10:32)
--- NOTE | 2017-12-02 11:58 | PDOC DISCHARGE SUMMARY ---
Final Diagnosis Discharge Date: 12/02/17 Discharge Data - Discharge Medication Prescriptions: Ibuprofen [Motrin 800 mg Tablet] 800 mg PO Q8 #60 tablet Home Medications: Pnv W-O Ca No5/Fe Fumarate/FA [-U Multiple Vitamin Capsule] 1 cap PO DAILY 11/11/11 Ibuprofen [Motrin 800 mg Tablet] 800 mg PO Q8 #60 tablet 12/02/17 Procedures: NST Intrapartum Procedure(s): Spontaneous Vaginal Delivery - Diagnosis Test Laboratory: Temp Pulse Resp BP Pulse Ox 97.9 F 81 17 104/74 99 12/02/17 09:35 12/02/17 09:35 12/02/17 09:35 12/02/17 08:36 12/02/17 09:35 11/30/17 12/01/17 10:14 07:22 RBC 3.79 3.61 L Hgb 10.9 L 10.4 L Hct 32.8 L 31.5 L - Discharge information/Instructions Discharge Activity: Balance Activity w/Rest, Pelvic Rest Discharge Diet: Regular Disposition: HOME, SELF-CARE Follow up with: [facility] in: 4, Weeks
== END 2017-12-02 11:35 | disposition home or self-care (01) | DRG 775 ==
LOC: LC 09:24 → LR 09:47 → 2S 12:28
PROVIDERS: ADMIT Obstetrics & Gynecology; ATTEND Obstetrics & Gynecology
PROC: 10E0XZZ Delivery of Products of Conception, External Approach (ICD-10-PCS; principal; 2017-11-30)
PROC: 10907ZC Drainage of Amniotic Fluid, Therapeutic from Products of Conception, Via Natural or Artificial Opening (ICD-10-PCS; 2017-11-30)
PROC: 4A1HXCZ Monitoring of Products of Conception, Cardiac Rate, External Approach (ICD-10-PCS; 2017-11-30)
DX: O99.824 Streptococcus B carrier state complicating childbirth (principal); O62.3 Precipitate labor; O69.81X0 Labor and delivery complicated by cord around neck, without compression, not applicable or unspecified; Z87.891 Personal history of nicotine dependence; Z3A.38 38 weeks gestation of pregnancy; Z37.0 Single live birth
CPT/HCPCS: 36415; 85025; 85027; 86592; 86850; 86900; 86901; J2590; J3490

== ENCOUNTER 2018-11-20 15:15 | Emergency (ER) | payer SELFPAY ==
[2018-11-20] MEDS ORDERED: NORMAL SALINE 1000 ML 1,000 ML IV ONE (16:44)
[2018-11-20] MEDS ORDERED: ONDANSETRON HCL INJ/PF 4 MG/2 ML SDV IV ONE (16:46)
--- NOTE | 2018-11-20 16:47 | ER Document Report ---
ED Medical Screen (RME) - General Chief Complaint: Abdominal Pain Stated Complaint: VOMITING, DIARRHEA, ABDOMINAL PAIN Time Seen by Provider: 11/20/18 16:44 Mode of Arrival: Ambulatory Information source: Patient TRAVEL OUTSIDE OF THE [place] IN LAST 30 DAYS: No - HPI Notes: 11/20/18 17:46 20-year-old female presents to ED with complaints of nausea vomiting diarrhea times 2-3 days, getting worse. patient states that family is sick in the home. Reports lower abdominal pain. patient is currently on her menstrual cycle. has been drinking but decreased eating. No fevers. Was concerned because she was vomiting of blood with dry heaving. Worse with time, nothing makes better. I have greeted and performed a rapid initial assessment of this patient. A comprehensive ED assessment and evaluation of the patient, analysis of test results and completion of medical decision making process will be conducted by an additional ED providers. - Related Data Allergies/Adverse Reactions: adhesive [Adhesive] Allergy (Verified 11/20/18 16:37) Hives Past Medical History - Social History Chew tobacco use (# tins/day): No Frequency of alcohol use: None Pulmonary Medical History: Reports: Hx Pneumonia Renal/ Medical History: Denies: Hx Peritoneal Dialysis - Immunizations Hx Diphtheria, Pertussis, Tetanus Vaccination: Yes - < 5 years History of Influenza Vaccine for 08/2017 - 01/2018 Season: Yes Physical Exam - Vital signs Vitals: Temp Pulse Resp BP Pulse Ox 99.0 F 93 16 116/76 98 11/20/18 15:26 11/20/18 15:26 11/20/18 15:26 11/20/18 15:26 11/20/18 15:26 - Respiratory Respiratory status: No respiratory distress Chest status: Nontender Breath sounds: Normal Chest palpation: Normal - Cardiovascular Rhythm: Regular Normal capillary refill: Yes - Abdominal Inspection: Normal Distension: No distension Bowel sounds: Normal Tenderness: Nontender Organomegaly: No organomegaly Notes: generalized abd pain, worse in LLQ Course - Vital Signs Vital signs: Temp Pulse Resp BP Pulse Ox 99.0 F 93 16 116/76 98 11/20/18 15:26 11/20/18 15:26 11/20/18 15:26 11/20/18 15:26 11/20/18 15:26 - Laboratory Result Diagrams: 11/20/18 16:52 11/20/18 16:52 Laboratory results interpreted by me: 11/20/18 11/20/18 16:52 16:52 Seg Neutrophils % 84.5 H Lymphocytes % 7.0 L Urine Protein 30 H Urine Ketones 20 H Urine Blood MODERATE H Urine Urobilinogen 2.0 H Doctor's Discharge - Discharge Referrals: PUJA YUN MD [Primary Care Provider] - Follow up as needed
[2018-11-20 17:08] LABS: ABSOLUTE LYMPHOCYTES (AUTO) 0.5 10^3/uL (0.5-4.7); ABSOLUTE MONOCYTES (AUTO) 0.6 10^3/uL (0.1-1.4); ABSOLUTE NEUT (AUTO) 6.3 10^3/uL (1.7-8.2); BASOPHILS % (AUTO) 0.2 % (0-2); EOSINOPHILS % (AUTO) 0.2 % (0-6); HEMATOCRIT 38.1 % (36.0-47.0); HEMOGLOBIN 12.8 g/dL (12.0-15.5); MEAN CORPUSCULAR HEMOGLOBIN 29.4 pg (27.0-33.4); MEAN CORPUSCULAR HGB CONC 33.6 g/dL (32.0-36.0); MEAN CORPUSCULAR VOLUME 87 fl (80-97); MONOCYTES % (AUTO) 8.1 % (3-13); PLATELET COUNT 261 10^3/uL (150-450); RED BLOOD COUNT 4.36 10^6/uL (3.72-5.28); RED CELL DISTRIBUTION WIDTH 12.5 % (11.5-14.0); SEGMENTED NEUTROPHILS % (AUTO) 84.5 % (42-78); TOTAL CELLS COUNTED % (AUTO) 100 %; WHITE BLOOD COUNT 7.4 10^3/uL (4.0-10.5)
[2018-11-20 17:38] LABS: ALANINE AMINOTRANSFERASE 20 U/L (9-52); ALBUMIN 4.6 g/dL (3.5-5.0); ALKALINE PHOSPHATASE 54 U/L (38-126); ANION GAP 10 (5-19); ASPARTATE AMINO TRANSFERASE 27 U/L (14-36); BILIRUBIN,DIRECT 0.2 mg/dL (0.0-0.4); BILIRUBIN,TOTAL 0.7 mg/dL (0.2-1.3); BLOOD UREA NITROGEN 12 mg/dL (7-20); CALCIUM 8.9 mg/dL (8.4-10.2); CARBON DIOXIDE 25 mmol/L (22-30); CHLORIDE 103 mmol/L (98-107); GLUCOSE 105 mg/dL (75-110); SODIUM 138.2 mmol/L (137-145); TOTAL PROTEIN 7.7 g/dL (6.3-8.2)
[2018-11-20 17:44] LABS: APPEARANCE,URINE SLIGHTLY-CLOUDY; BILIRUBIN,URINE NEGATIVE (NEGATIVE); COLOR,URINE YELLOW; GLUCOSE, URINE NEGATIVE (NEGATIVE); KETONES,URINE 20 mg/dL (NEGATIVE); LEUKOCYTE ESTERASE,URINE NEGATIVE (NEGATIVE); NITRITE,URINE NEGATIVE (NEGATIVE); PROTEIN,URINE 30 mg/dL (NEGATIVE); URINE SPECIFIC GRAVITY 1.026
--- NOTE | 2018-11-20 20:04 | ER Document Report ---
ED General - General Chief Complaint: Abdominal Pain Stated Complaint: VOMITING, DIARRHEA, ABDOMINAL PAIN Time Seen by Provider: 11/20/18 16:44 Mode of Arrival: Ambulatory Notes: Patient is a 28-year-old female without any chronic medical problems who presents with several days of nausea, vomiting, diarrhea and abdominal cramping. States that her child and are both recently seen for similar illness. She states that nothing seems to improve or worsen her symptoms. Cramping in her abdomen is described as a mild, aching, cramping diffuse abdominal discomfort. Nothing seems to trigger or worsen her symptoms. Denies a history of similar symptoms in the past. Denies fever. She has not seen her general physician regarding today's concerns. TRAVEL OUTSIDE OF THE [place] IN LAST 30 DAYS: No - Related Data Allergies/Adverse Reactions: adhesive [Adhesive] Allergy (Verified 11/20/18 16:37) Hives Past Medical History - General Information source: Patient - Social History Smoking Status: Current Every Day Smoker Chew tobacco use (# tins/day): No Frequency of alcohol use: None Lives with: Spouse/Significant other Family History: Reviewed & Not Pertinent Patient has suicidal ideation: No Patient has homicidal ideation: No Pulmonary Medical History: Reports: Hx Pneumonia Renal/ Medical History: Denies: Hx Peritoneal Dialysis - Immunizations Hx Diphtheria, Pertussis, Tetanus Vaccination: Yes - < 5 years Hx Pneumococcal Vaccination: 08/18/11 Review of Systems - Review of Systems Notes: Constitutional: Negative for fever. HENT: Negative for sore throat. Eyes: Negative for visual changes. Cardiovascular: Negative for chest pain. Respiratory: Negative for shortness of breath. Gastrointestinal: Positive for abdominal pain, vomiting diarrhea Genitourinary: Negative for dysuria. Musculoskeletal: Negative for back pain. Allergies now that semi- Skin: Negative for rash. Neurological: Negative for headaches, weakness or numbness. 10 point ROS negative except as marked above and in HPI. Physical Exam - Vital signs Vitals: Temp Pulse Resp BP Pulse Ox 99.0 F 93 16 116/76 98 11/20/18 15:26 11/20/18 15:26 11/20/18 15:26 11/20/18 15:26 11/20/18 15:26 Interpretation: Normal Notes: PHYSICAL EXAMINATION: GENERAL: Well-appearing, well-nourished and in no acute distress. HEAD: Atraumatic, normocephalic. EYES: Pupils equal round and reactive to light, extraocular movements intact, sclera anicteric, conjunctiva are normal. ENT: nares patent, oropharynx clear without exudates. Moist mucous membranes. NECK: Normal range of motion, supple without lymphadenopathy LUNGS: Breath sounds clear to auscultation bilaterally and equal. No wheezes rales or rhonchi. HEART: Regular rate and rhythm without murmurs ABDOMEN: Soft, nontender, normoactive bowel sounds. No guarding, no rebound. No masses appreciated. EXTREMITIES: Normal range of motion, no pitting or edema. No cyanosis. NEUROLOGICAL: No focal neurological deficits. Moves all extremities spontaneously and on command. PSYCH: Normal mood, normal affect. SKIN: Warm, Dry, normal turgor, no rashes or lesions noted. Course - Re-evaluation Re-evalutation: 11/20/18 20:02 Presentation of an overall well-appearing patient in no acute distress with complaints of nausea, vomiting, diarrhea as well as generalized abdominal pain. All close family contacts have been sick with the same symptoms. This is consistent with likely viral gastroenteritis. Patient has no abdominal tenderness on exam and specifically no tenderness in the RLQ, LLQ, RUQ. Overall well hydrated on exam. Able to tolerate oral intake here in the emergency department. Low clinical suspicion for any acute life-threatening etiology based on exam and history including acute cholecystitis, SBO, appendicitis, nephrolithiasis, or pylonephritis. CMP without evidence of acute hepatitis or significant dehydration. At this time will discharge with return precautions and follow-up recommendations. Verbal discharge instructions given a the bedside and opportunity for questions given. Medication warnings reviewed. Patient is in agreement with this plan and has verbalized understanding of return precautions and the need for primary care follow-up in the next 24-72 hours. - Vital Signs Vital signs: Temp Pulse Resp BP Pulse Ox 98.9 F 73 18 114/73 99 11/20/18 20:22 11/20/18 20:22 11/20/18 20:22 11/20/18 20:22 11/20/18 20:22 - Laboratory Result Diagrams: 11/20/18 16:52 11/20/18 16:52 Laboratory results interpreted by me: 11/20/18 11/20/18 16:52 16:52 Seg Neutrophils % 84.5 H Lymphocytes % 7.0 L Urine Protein 30 H Urine Ketones 20 H Urine Blood MODERATE H Urine Urobilinogen 2.0 H Discharge - Discharge Clinical Impression: Nausea vomiting and diarrhea, Abdominal cramping Condition: Good Disposition: HOME, SELF-CARE Additional Instructions: Your symptoms are likely due to a viral illness and should resolve in the next several days. You can take [id number] loperamide also known as Imodium as needed for diarrhea per box instructions. Continue to stay hydrated with plenty of solution such as Gatorade or Pedialyte. Please return if you develop severe abdominal pain, pass out, become unable to tolerate any oral fluids for 12 more hours, or any other symptoms that are concerning to you. Referrals: PUJA YUN MD [[facility]FREDO] - Follow up as needed
[2018-11-20 20:26] VITALS: BP 114/73
== END 2018-11-20 20:26 | disposition home or self-care (01) ==
LOC: ER 15:15
DX: R10.9 Unspecified abdominal pain (principal); R19.7 Diarrhea, unspecified; R11.2 Nausea with vomiting, unspecified; F17.200 Nicotine dependence, unspecified, uncomplicated
CPT/HCPCS: 99284; 96361; 96374; 36415; 85025; 81025; 80053; 81001; J2405; J7030